=== PATIENT | male | born 1980 | race Caucasian/White ===

== ENCOUNTER 2016-11-22 11:58 | Emergency (ER) | payer BC ==
[2016-11-22 12:05] VITALS: TEMP 98
[2016-11-22] MEDS ORDERED: KETOROLAC 60 MG/2 ML VIAL IM STA (12:42)
--- NOTE | 2016-11-22 12:58 | ED ---
Back Pain HPI - General Chief Complaint: Back Pain/Injury Stated Complaint: back and leg pain Time Seen by Provider: 11/22/16 12:27 Source: patient Mode of arrival: ambulatory Limitations: no limitations - History of Present Illness Initial Comments: Patient is a 36-year-old white male resending to the emergency department with complaints of acute lumbar back pain. Onset started night. Patient states he thinks he twisted his back but doesn't recall specific event. Patient states that pain has progressively gotten worse and is currently rated 8 out of 10. Patient describes pain as sharp, exacerbating with moving and bending, relieved with rest, patient states pain is radiating down his posterior thigh to his calf on the right side and feels like occasional numbness and burning. Patient states he has difficulty ambulating secondary to pain. Patient states he took some Tylenol last night without relief. Patient does report history of similar episode approximately 3 months ago but stated that had resolved. Patient denies recent illness, fevers, nausea, vomiting, shortness of breath, chest pain, abdominal pain, urinary or fecal incontinence, saddle anesthesia, IV drug abuse, no history of cancer. - Related Data Previous Rx's Medication Instructions Recorded Famotidine [Pepcid] 20 mg PO DAILY #30 tablet 11/22/16 HYDROcodone/APAP 5-325MG [Abbott 1 tab PO Q4HR PRN #12 tab 11/22/16 5-325] Ibuprofen [Motrin] 800 mg PO TID #20 tab 11/22/16 predniSONE 50 mg PO DAILY #5 tab 11/22/16 Allergies Allergy/AdvReac Type Severity Reaction Status Date / Time No Known Allergies Allergy Verified 11/22/16 12:05 Review of Systems ROS Statement: Those systems with pertinent positive or pertinent negative responses have been documented in the HPI. ROS Other: All systems not noted in ROS Statement are negative. Past Medical History Additional Past Medical History / Comment(s): back pain History of Any Multi-Drug Resistant Organisms: None Reported Past Surgical History: Cholecystectomy Past Psychological History: No Psychological Hx Reported Smoking Status: Current every day smoker Past Alcohol Use History: None Reported Past Drug Use History: None Reported General Exam Limitations: no limitations General appearance: alert, in no apparent distress Head exam: Present: atraumatic, normocephalic, normal inspection Eye exam: Present: normal appearance ENT exam: Present: normal exam, mucous membranes moist, normal external ear exam Neck exam: Present: normal inspection, full ROM. Absent: tenderness, lymphadenopathy Respiratory exam: Present: normal lung sounds bilaterally. Absent: respiratory distress, wheezes, rales, rhonchi, stridor Cardiovascular Exam: Present: normal rhythm, tachycardia, normal heart sounds. Absent: systolic murmur GI/Abdominal exam: Present: soft, normal bowel sounds. Absent: distended, tenderness Rectal exam: Present: deferred Right Knee exam: Present: normal inspection, full ROM. Absent: tenderness, swelling Lower Leg exam: Present: normal inspection, full ROM. Absent: tenderness, swelling Ankle exam: Present: normal inspection, full ROM. Absent: tenderness, swelling Foot/Toe exam: Present: normal inspection, full ROM. Absent: tenderness, swelling Neurovascular tendon exam: Present: no vascular compromise. Absent: motor deficit, sensory deficit, tendon deficit, extremity cold to touch, pallor, foot drop, significant pain with passive ROM of distal joint Gait: observed and limited by pain Back exam: Present: full ROM (Secondary to pain), paraspinal tenderness (Right lumbar region). Absent: CVA tenderness (R), CVA tenderness (L), vertebral tenderness, rash noted Expanded Back exam: Absent: saddle anesthesia Back exam: Sciatic Notch Tenderness: Right, Positive Straight Leg Raise: Right, Negative Straight Leg Raising: Left Neurological exam: Present: alert, oriented X3, motor sensory deficit, reflexes normal, other (No focal deficits noted) Psychiatric exam: Present: normal affect, normal mood Skin exam: Present: warm, dry, intact, normal color. Absent: rash Course Vital Signs 11/22/16 12:03 Temperature 98 F Pulse Rate 108 H Respiratory 20 Rate Blood Pressure 120/72 O2 Sat by Pulse 99 Oximetry Medical Decision Making - Medical Decision Making Lumbar radiculopathy right side. Lumbar sacral spine x-ray: No evidence of fracture or dislocation. Mild facet arthropathy at L5-S1. Degenerative disc disease at T12-L1 and L-1L2. Patient instructed on conservative management. Patient started to follow-up with primary care physician and orthopedic surgeon as directed. Patient instructed to return to the emergency department with unrelieved or worsening symptoms. Patient agrees with treatment plan. Discharge instructions and return parameters reviewed. - Radiology Data Radiology results: report reviewed Lumbar sacral spine x-ray: No evidence of fracture or dislocation. Mild facet arthropathy at L5-S1. Degenerative disc disease at T12-L1 and L-1L2. As read by Dr. Hannah, radiologist. Disposition Clinical Impression: Lumbar radiculopathy Disposition: HOME SELF-CARE Condition: Good Instructions: Lumbar Radiculopathy (ED), Lower Back Exercises (ED) Additional Instructions: Avoid activities that provoke pain but avoid bed rest. Continue Motrin 800 mg by mouth oral for pain. Continue Abbott as directed. Continue steroids as directed. May use warm compresses. Follow-up with primary care physician and orthopedic surgeon as directed. Patient return to the emergency department if symptoms do not improve or get worse. Prescriptions: Famotidine [Pepcid] 20 mg PO DAILY #30 tablet HYDROcodone/APAP 5-325MG [Abbott 5-325] 1 tab PO Q4HR PRN #12 tab PRN Reason: Pain Ibuprofen [Motrin] 800 mg PO TID #20 tab predniSONE 50 mg PO DAILY #5 tab Referrals: Jose Guzman MD [Primary Care Provider] - 1-2 days Yury Peters DO [Doctor of Osteopathic Medicine] - 1-2 days Time of Disposition: 13:27
--- NOTE | 2016-11-22 13:15 | XR ---
EXAMINATION TYPE: XR lumbosacral spine min 4V DATE OF EXAM: 11/22/2016 1:06 PM COMPARISON: NONE HISTORY: Low back pain. TECHNIQUE: 4 views of the lumbosacral spine were obtained. FINDINGS: Mild facet arthropathy is seen at L5-S1. No evidence of spondylolisthesis, pars interarticu skye defects, fracture or dislocation. Vertebral bodies maintain their normal alignment and vertebra l body height. Schmorl's node is seen at the inferior endplate of L1. Mild intervertebral disc space height loss is seen at T12-L1. Surgical clips are seen within the region of the gallbladder fossa. IMPRESSION: 1. No evidence of fracture or dislocation. 2. Vertebral body heights maintain a normal alignment and vertebral body height. 3. Mild facet arthropathy at L5-S1. 4. Degenerative disc disease at T12-L1 and L1-L2.
[2016-11-22 13:32] VITALS: BP 112/66; PULSE 91; RESP 16
== END 2016-11-22 13:32 | disposition home or self-care (01) ==
LOC: EC 11:58
DX: M54.16 Radiculopathy, lumbar region (principal); M51.36 Other intervertebral disc degeneration, lumbar region; F17.200 Nicotine dependence, unspecified, uncomplicated
CPT/HCPCS: 99283; 96372; 72110; J1885

== ENCOUNTER → 2017-09-28 | Outpatient (CLI) | payer BC, OTHER ==
--- NOTE | 2017-09-28 21:13 | US ---
EXAMINATION TYPE: US scrotum with doppler. Grayscale and color Doppler Duplex imaging performed of felicitas smith scrotum. DATE OF EXAM: 09/28/2017 COMPARISON: NONE CLINICAL HISTORY: R59.1 Enlarged Lymph Nodes. Left groin pain. EXAM MEASUREMENTS: TESTICLES: Right Testicle: 4.7 x 2.3 x 3.1 cm Left Testicle: 4.3 x 2.3 x 2.9 cm EPIDIDYMIS HEAD: Right Epididymis: 09 x .6 x .8 cm Left Epididymis: 09 x .7 x .9 cm Doppler performed to assess for testicular vascularity; good bilateral color flow and waveforms are s een. There is no evidence of testicular torsion. Presence of hydroceles: No Presence of varicoceles: No Bilateral good color flow seen. IMPRESSION: Normal testicular sonogram. No evidence of testicular torsion or mass. No evidence of a h ernia.
--- NOTE | 2017-09-28 21:14 | US ---
EXAMINATION TYPE: US groin LT DATE OF EXAM: 09/28/2017 COMPARISON: NONE CLINICAL HISTORY: R10.2. Left groin pain. Exam appears wnl. IMPRESSION: Left groin evaluation shows no evidence of a solid or cystic mass. There is no evidence of a hernia sac.
--- NOTE | 2017-09-28 21:15 | US ---
EXAMINATION TYPE: US groin RT DATE OF EXAM: 09/28/2017 COMPARISON: NONE CLINICAL HISTORY: R10.2. Groin pain. Exam appears wnl. IMPRESSION: Right groin region evaluation shows no solid or cystic mass. There is no evidence of a h ernia.
== END | disposition home or self-care (01) ==
LOC: RADUSMAIN 18:42
PROVIDERS: ATTEND Family Medicine
DX: R10.2 Pelvic and perineal pain (principal); N50.819 Testicular pain, unspecified
CPT/HCPCS: 76870; 93975